=== PATIENT | male | born 1990 | race Two or more races ===

== ENCOUNTER 2017-10-02 19:43 | Emergency (ER) | payer OTHER, MEDICAID ==
[~2017-10-02] VITALS: Ht 180.3 cm; Wt 70.0 kg
[2017-10-02 21:15] VITALS: BP 138/71
== END 2017-10-02 22:34 | disposition left against medical advice (07) ==
LOC: ER 20:20
DX: G40.89 Other seizures (principal); J45.909 Unspecified asthma, uncomplicated; Z88.0 Allergy status to penicillin
CPT/HCPCS: 99283